=== PATIENT | male | born 1985 | race Caucasian/White ===

== ENCOUNTER 2023-12-18 19:21 | Emergency (ER) | payer OTHER, SELFPAY ==
[2023-12-18 19:27] VITALS: BP 139/93
[2023-12-18 19:40] LABS: % Basophils 0.6 % (0-2); % Eosinophils 1.8 % (0-6); % Immature Granulocytes 0.2 % (0-0.5); % Lymphocytes 35.7 % (20.5-51.1); % Monocytes 10.9 % (1.7-9.3); % Neutrophils 50.8 % (42.2-75.2); Absolute Basophils 0.1 10^3/uL (0-0.2); Absolute Eosinophils 0.2 10^3/uL (0-0.7); Absolute Lymphocytes 3.1 10^3/uL (1.2-3.4); Absolute Monocytes 0.9 10^3/uL (0.1-0.6); Absolute Neutrophils 4.4 10^3/uL (1.4-6.5); Hematocrit 41.4 % (39.0-52.0); Hemoglobin 15.4 g/dL (13.0-18.0); Mean Corp Hgb Conc. 37.2 g/dL (33.0-37.0); Mean Corpuscular Volume 83.3 fL (80.0-94.0); Mean Platelet Volume 10.2 fL (7.4-10.4); Nucleated Red Blood Cells % 0 % (-); Platelet Count 283 10^3/uL (130-400); Red Blood Cell Count 4.97 10^6/uL (4.70-6.10); Red Cell Dist. Width 12.1 % (11.5-14.5); White Blood Cell Count 8.6 10^3/uL (4.8-10.8)
[2023-12-18 19:53] LABS: ALT (SGPT) 15 U/L (0-50); AST (SGOT) 19 U/L (17-59); Albumin 4.9 g/dl (3.5-5.0); Alkaline Phosphatase 83 U/L (38-126); Blood Urea Nitrogen 10 mg/dl (9-20); Calcium 9.2 mg/dl (8.4-10.2); Carbon Dioxide 26 mmol/L (22-30); Glucose 103 mg/dl (70-99); Total Bilirubin 0.5 mg/dl (0.2-1.3); Total Protein 7.4 g/dl (6.3-8.2); eGFR > 60.00
[2023-12-18 19:55] LABS: COVID-19 Antigen Negative (Negative)
[2023-12-18 19:57] LABS: Chloride 100 mmol/L (98-107); Potassium 4.1 mmol/L (3.5-5.1); Sodium 137 mmol/L (135-145)
[2023-12-18 20:04] LABS: Troponin I < 0.012 ng/ml
[2023-12-18 20:18] VITALS: BP 148/90
--- NOTE | 2023-12-18 20:35 | ED.GENMED ---
History of Present Illness
General
Chief Complaint: Chest Pain
Source: patient
Exam Limitations: none
Time Seen by Provider: 12/18/23 20:15
Nursing documentation reviewed up to this point in time: agreed with
Travel History
Have you had any contact with someone who has COVID-19?: No
Do you have any symptoms of coronavirus? Fever > 100 degrees, chills, cough, shortness of breath, sore throat, loss of taste or smell, muscle aches, or headache?: No
History of Present Illness
History of Present Illness:
38-year-old male presents emerged from complaining of not feeling well for the past few days and chest heaviness tonight. No aggravating alleviating factors. He states he does not feel well.
Past History
Past History
ED Past Medical History: Other (MRSA skin abscesses)
ED Past Surgical History: None and Orthopedic
Patient has exhibited threatening behavior?: No
PSI?: No
Social History
Tobacco: Smoker
Alcohol: None
Drug: Marijuana
Personal: Single
Living: with family
Employment: Employed
Review of Systems
Review of Systems
Allergies reviewed?: Yes
All Other Systems: Not applicable
Constitutional: Reports fatigue
EENT: Reports no symptoms
Respiratory: Reports no symptoms
Cardiac: Reports chest pain
ABD/GI: Reports no symptoms
: Reports no symptoms
Musculoskeletal: Reports no symptoms
Skin: Reports no symptoms
Neurological: Reports no symptoms
Endocrine: Reports no symptoms
Hematologic/Lymphatic: Reports no symptoms
Psychiatric: Reports no symptoms
Phy Exam
Physical Exam
Physical Exam:
Physical Exam
General: no apparent distress, not acutely ill
Neck: supple. no meningeal signs. normal posterior pharynx
Heart: s1/s2 regular rate and rhythm, no murmur. equal radial
pulses.
HEENT: Pupils equal round reactive to light, EOMI
Lungs: no acute respiratory distress. clear bilaterally
Abdomen: normal bowel sounds. not tender. no CVAT
Neuro: alert and oriented. no focal neurological deficits cranial nerves II through XII intact
Skin: no rash
Psychiatric: well kept. interactive and cooperative
Extremities: no edema. no calf tenderness. negative homans. good distal pulses
Scores
Heart Score for Chest Pain Patients
STEMI patient?: No
History: Slightly or Non-Suspicious
ECG: Normal
Age: </= 45 years
Risk Factors: 1 or 2 Risk Factors
Troponin: </= Normal Limit
Heart Score for Chest Pain Patients: 1
Heart Score Risk: 2.5% MACE over next 6 weeks
Course
Orders/Labs/Results
Orders:
Orders
12/18/23 19:22
Electrocardiogram (*1) Urgent
Reason for Study: Chest Pain
EKG- Treatment ONCE
12/18/23 19:34
COVID-19 Antigen Urgent
Source: Nasal Swab
Complete Blood Count/With Diff Urgent
Comprehensive Metabolic Panel Urgent
Troponin I Urgent
Abnormal Lab Results
12/18/23
19:34
MCHC 37.2 H g/dL
(33.0-37.0)
Absolute Monos (auto) 0.9 H 10^3/uL
(0.1-0.6)
Monocytes % 10.9 H %
(1.7-9.3)
Glucose 103 H mg/dl
(70-99)
12/18/23 19:34
12/18/23 19:34
Vital Signs
Initial and Last Documented VS:
Initial Vital Signs
Temp Pulse Resp BP Pulse Ox
98.9 F 93 16 139/93 98
12/18/23 19:27 12/18/23 19:27 12/18/23 19:27 12/18/23 19:27 12/18/23 19:27
Last Documented Vital Signs
Temp Pulse Resp BP Pulse Ox
98.9 F 82 27 148/90 97
12/18/23 19:27 12/18/23 20:30 12/18/23 20:30 12/18/23 20:18 12/18/23 20:30
MDM/Problems Addressed
Differential Diagnosis Includes:
ACS, PE, anxiety
MDM/Problems Addressed:
38-year-old male with chest heaviness for the past hour or so, and not feeling well for the past several days. No acute findings on exam or labs. Doubt ACS or PE. Patient left prior to completion of workup. Troponin was pending, which was
explained to the patient. I called him, but he did not answer his phone.
*Pulse Oximetry
Patient hypoxic: no
*EKG
Interpreted by ED Provider?: Yes
EKG Intrepretation Date: 12/18/23
EKG Intrepretation Time: 19:25
Interpretation: abnormal
Comparison EKG: no comparison EKG present
Heart Rate: 87
Rate: normal
Rhythm: sinus
[place]: normal axis
Interval: normal interval
QRS Pattern: wide non-specific
Ischemia: no ischemia
*Terminal Clerk Interpretation
Rate: normal
Interpretation: normal
Heart Rate: 88
Rhythm: sinus
*Critical Care Note
Total Time (30-74mins, 75-104mins- exclusive of procedures): Not Applicable
Data Reviewed
Further Testing Considered But Not Given:
repeat troponin, however, patient left prior to completion of workup
ED Attending Note
-
Portions of this chart may have been created with voice recognition software.� Occasional wrong word or��sound alike� substitutions may have occurred due to the inherent limitations of voice recognition software.
Discharge Plan
Departure
Patient Disposition: Home (Routine Discharge)
Date of Disposition: 12/18/23
Time of Disposition: 20:53
Patient with high blood pressure during this ER visit?: Yes
Condition: Good
Discharge Problem:
Chest pain
Instructions: Chest Pain PCP Follow Up, BLOOD PRESSURE
Prescriptions:
No Action
clindamycin HCl 300 mg capsule
300 mg PO TID Qty: 30 0RF
doxycycline hyclate 100 mg capsule
100 mg PO BID 10 Days Qty: 20 0RF
Referrals:
UNKNOWN - PT DOES,NOT KNOW [Family Provider] -
Interventions
Interventions:
*Risk Screen - Suicide Last Done: 12/18/23 19:27
*General Assessment Last Done: 12/18/23 19:27
*Neglect/Abuse Screening Last Done: 12/18/23 19:27
ED- Fall Risk Assessment Last Done: 12/18/23 20:39
ED- Cardiac Assessment Last Done: 12/18/23 20:39
Discharge Date and Time
Print Language: TELUGU
== END 2023-12-18 21:02 | disposition home or self-care (01) ==
LOC: EMR 19:21
PROVIDERS: Emergency Medicine; EMERGENCY PHYSICIAN Emergency Medicine
DX: R07.89 Other chest pain (principal); F17.200 Nicotine dependence, unspecified, uncomplicated
CPT/HCPCS: 99284; 80053; 84484; 85025; 87811; 93005

== ENCOUNTER 2024-11-09 06:18 | Day surgery (SDC) | payer OTHER, SELFPAY ==
[2024-11-09] MEDS: TYLENOL 1000 MG PO (09:13)
[2024-11-09 09:17] VITALS: BP 126/89
[2024-11-09] MEDS: NORMOSOL-R/PLASMALYTE-A 1000 IV (09:25)
[2024-11-09 11:46] VITALS: BP 118/70
[2024-11-09 12:00] VITALS: BP 116/80
[2024-11-09 12:15] VITALS: BP 108/65
[2024-11-09 12:30] VITALS: BP 103/67
[2024-11-09 12:45] VITALS: BP 101/66
== END 2024-11-09 13:18 | disposition home or self-care (01) ==
LOC: SDS 06:18
PROVIDERS: ATTENDING PHYSICIAN Surgery
DX: K60.1 Chronic anal fissure (principal); K64.4 Residual hemorrhoidal skin tags
CPT/HCPCS: 46922; 46200; 87070